=== PATIENT | male | born 1985 | race Caucasian/White ===

== ENCOUNTER 2023-04-17 06:10 | Day surgery (SDC) | payer BC ==
[2023-04-09 16:34] VITALS: BMI 23.0
[2023-04-17] MEDS ORDERED: Levofloxacin 500 mg/D5W 100 ml Premix Bag ONE (06:59)
[2023-04-17] MEDS ORDERED: Dexmedetomidine 200 MCG/2 ML VIAL ONE (07:04)
[2023-04-17] MEDS ORDERED: fentaNYL PF 100 MCG/2 ML SYRINGE ONE (07:04)
[2023-04-17] MEDS ORDERED: Iopamidol 30 ML ONE (07:21)
[2023-04-17] MEDS ORDERED: Lidocaine 1% PF 5 ML VIAL ONE (07:38)
[2023-04-17] MEDS ORDERED: Ondansetron PF 4 MG/2 ML Vial ONE (07:38)
[2023-04-17] MEDS ORDERED: PROPOFOL 200 MG/20 ML VIAL ONE (07:38)
[2023-04-17] MEDS ORDERED: PHENYLEPHRINE-NS 100 MCG/ML 10 ML SYRINGE ONE (07:38)
[2023-04-17] MEDS ORDERED: Rocuronium Bromide 10 MG/ML (10ML VIAL) ONE (07:38)
[2023-04-17] MEDS ORDERED: Dexamethasone 20 MG/5 ML VIAL ONE (07:38)
[2023-04-17] MEDS ORDERED: Ketorolac Tromethamine 30 MG/ML VIAL ONE (07:38)
[2023-04-17] MEDS ORDERED: Oxybutynin 5 MG TAB ONE (08:51)
[2023-04-17] MEDS ORDERED: Phenazopyridine HCl 100 MG TAB ONE (08:51)
[2023-04-17] MEDS ORDERED: fentaNYL 50 mcg/mL 1 mL Vial ONE (08:59)
[2023-04-17] MEDS ORDERED: HYDROcodone/Acetaminophen 5/325 mg Tablet ONE (09:55)
[2023-04-23 17:15] LABS: CA Oxalate Dihydrate 90 % (.); CA Oxalate Monohydrate 10 % (.); Color Brown (.)
== END 2023-04-17 11:05 | disposition home or self-care (01) ==
LOC: SDC 06:10
PROVIDERS: ATTEND Urology
PROC: 0TF78ZZ Fragmentation in Left Ureter, Via Natural or Artificial Opening Endoscopic (ICD-10-PCS; principal; 2023-04-17)
DX: N20.2 Calculus of kidney with calculus of ureter (principal); E78.00 Pure hypercholesterolemia, unspecified
CPT/HCPCS: 74018; 74420; 82365; 88300; C1747; C1769; C2617; J1100; J1885; J1956; J2405; J2704; J3010; Q9967